=== PATIENT | female | born 1955 | race Caucasian/White ===

== ENCOUNTER 2016-11-18 14:45 | Inpatient (IN) | payer MEDICARE, OTHER ==
[2016-11-18 15:06] VITALS: BMI 42.9
[2016-11-18] MEDS ORDERED: IPRATROPIUM/ALBUTEROL SULFATE 3 ML AMPUL.NEB NEB PRN (16:09)
[2016-11-18] MEDS ORDERED: SALINE FLUSH 10 ML DISP.SYRIN IVF ONE ×3 (16:57→17:33)
[2016-11-18 17:06] LABS: BASOPHILS % 0.7 (0.0-1.5); EOSINOPHILS % 2.3 % (0.0-6.8); LYMPHOCYTES # 1.9 # k/uL (0.6-4.0); MEAN CORPUSCULAR HEMOGLOBIN 29.9 pg (28.0-34.0); MONOCYTES # 0.2 # k/uL (0.0-0.9)
[2016-11-18 17:23] LABS: eGFR (African) > 60; eGFR (Non-African) > 60
[2016-11-18] MEDS ORDERED: methylPREDNISolone SOD SUCC 125 MG/2 ML VIAL ONE ×2 (17:29→20:51)
[2016-11-18] MEDS ORDERED: POTASSIUM CHLORIDE 20 MEQ TABLET.ER ONE (17:30)
[2016-11-18] MEDS: methylPREDNISolone SOD SUCC 125 MG/2 ML VIAL IVP SCH ×2 (17:37→21:00)
[2016-11-18] MEDS: POTASSIUM CHLORIDE 20 MEQ TABLET.ER PO SCH (17:37)
--- NOTE | 2016-11-18 20:49 | Diagnostic Imaging Report ---
[facility] [address] [facility] [address] [address] Report Submission Date: Nov 18, 2016 6:59:11 PM CAB SUPERVISOR Patient Study Name: KAT THOMASON Date: Nov 18, 2016 6:44:44 PM CAB SUPERVISOR Modality Type: CR Gender: F Description: CHEST : 53 Institution: [facility] Physician: [facility] Pa and lateral chest Clinical history :short of breath Technique pa and lateral upright Findings: The lung cotto are clear. Lung cotto are hyperinflated. I see no hilar or mediastinal mass. There is no pleural effusion or lesion of the bony thorax. Impression: Hyperinflation with no acute infiltrate Electronically signed on Nov 18, 2016 6:59:11 PM CAB SUPERVISOR by: Shoaib PARK
--- NOTE | 2016-11-18 23:25 | History and Physical Report ---
History of Present Illnes - History of Present Illness Reason for Visit: Dyspnea History of Present Illness: This is a 61 year old female with COPD and asthma, who I saw in the clinic with respiratory distress and wheezing at the bedside. She has been ill now for the past week, but has gotten progressively worse. She had tried nebulizer therapy at home but was no improved and came to the office to be seen. She has had some diaphoresis, as well as generalized fatigue. - Past Medical History Cardiac: Other (Obesity) Pulmonary: Asthma, COPD Musculoskeletal: Osteoarthritis Endocrine: denies: Diabetes - Past Surgical History Past Surgical History: Appendectomy, Cholecystectomy, Hysterectomy, Tonsillectomy, Other (rotator cuff surgery) - Past Social History Smoke: Quit (3 years ago, approximately 40 pack year smoking history) Alcohol: None Drugs: None Lives: With Family ([place]) Domestic Violence: Negative - Health Maintenance Health Maintenance: Cholesterol Influenza Vaccine: Current for this Influenza Season Pneumonia Vaccine: Yes Resuscitation Status: Full Code Review of Systems - Review of Systems Constitutional: Fever, Chills Eyes: negative: pain ENT: negative: Ear Pain Respiratory: Cough, Shortness of Breath, SOB with Excertion Cardiovascular: negative: Chest Pain Gastrointestinal: negative: Nausea, Vomiting Genitourinary: negative: Dysuria, Frequency Musculoskeletal: negative: Neck Pain Skin: negative: Rash Neurological: Weakness. negative: Confusion - Medications/Allergies Allergies/Adverse Reactions: Allergies Allergy/AdvReac Type Severity Reaction Status Date / Time No Known Drug Allergies Allergy Verified 11/18/16 20:01 Current Inpatient Medications: Current Inpatient Medications Acetaminophen (Tylenol) 650 mg PO Q6H PRN PRN Reason: Fever >101 Albuterol/Ipratropium (Duoneb) 3 ml NEB Q4 PRN PRN Reason: Wheezing Furosemide (Lasix) 40 mg PO DAILY [facility] Methylprednisolone Sodium Succinate (Solu-Medrol) 125 mg IVP Q8 MARI Last Admin: 11/18/16 17:37 Dose: 125 mg Potassium Chloride (Klor-Con M20) 20 meq PO DAILY MARI Last Admin: 11/18/16 17:37 Dose: 20 meq Exam - Exam Vital Signs: Vital Signs (72 hours) 11/18/16 11/18/16 11/18/16 14:59 15:01 18:59 Temperature 97.2 F L 97.2 F L 96.9 F L Pulse Rate [ 72 72 65 Left] Respiratory 24 24 20 Rate Blood Pressure 141/77 141/77 100/71 [Left Arm] O2 Sat by Pulse 100 100 100 Oximetry 11/18/16 22:00 Temperature 98.1 F Pulse Rate [ 62 Left] Respiratory 20 Rate Blood Pressure 107/49 [Left Arm] O2 Sat by Pulse 96 Oximetry General: Alert, Oriented to Person, Oriented to Place, Oriented to Time, Cooperative, Moderate distress (respiratory), Obese HEENT: Atraumatic, PERRLA, EOMI Neck: No: Stridor Lungs: Wheezes, Rhonchi, Decreased Air Movement Cardiovascular: Regular rate Abdomen: Normal bowel sounds, Soft Male Genitourinary: No: Other Female Genitourinary: No: Other Integumentary: Normal, [place], Warm Extremities: No clubbing, No cyanosis Neurological: Normal speech Psych/Mental Status: Mental status NL, Mood NL, Intact Judgment - Laboratory Results Laboratory Results: Laboratory Results 11/18/16 11/18/16 16:45 16:45 WBC 5.30 RBC 4.32 Hgb 12.9 Hct 39.4 MCV 91.2 MCH 29.9 MCHC 32.8 RDW 12.7 Plt Count 198 Neut % (Auto) 55.9 Lymph % (Auto) 35.8 Terry % (Auto) 4.0 Eos % (Auto) 2.3 Baso % (Auto) 0.7 Neut # 3.0 Lymph # 1.9 Terry # 0.2 Eos # 0.1 Baso # 0.0 Reactive Lymphs % 1.3 Reactive Lymphs # 0.1 Sodium 139 Potassium 3.7 Chloride 107 Carbon Dioxide 28 BUN 10 Creatinine 0.6 Estimated Creat Clear 204 Est GFR ( Amer) > 60 Est GFR (Non-Af Amer) > 60 Glucose 112 H Calcium 9.5 Total Bilirubin 0.6 AST 28 ALT 24 Alkaline Phosphatase 96 Total Protein 7.0 Albumin 4.3 Assessment/Plan - Assessment/Plan (1) Asthma exacerbation Status: Acute Current Visit: Yes (2) Obesity (BMI 30-39.9) Status: Acute Current Visit: Yes VTE Assessment - RISK FACTOR SCORE VTE RISK FACTOR SCORES: AGE OVER 60 YEARS, ACUTE INFECTION OTHER THEN SEPSIS ( On lovenox/RODY hose)
[2016-11-19] MEDS ORDERED: ACETAMINOPHEN 325 MG TABLET ONE ×4 (00:30→22:06)
[2016-11-19] MEDS ORDERED: ENOXAPARIN SODIUM 30 MG/0.3 ML DISP.SYRIN SQ ONE ×2 (00:40→16:05)
[2016-11-19] MEDS: ACETAMINOPHEN 325 MG TABLET PO PRN ×3 (00:41→22:07)
[2016-11-19] MEDS: ENOXAPARIN SODIUM 30 MG/0.3 ML DISP.SYRIN SQ SCH ×2 (00:41→19:22)
[2016-11-19] MEDS ORDERED: POTASSIUM CHLORIDE 20 MEQ TABLET.ER ONE (04:26)
[2016-11-19] MEDS ORDERED: methylPREDNISolone SOD SUCC 125 MG/2 ML VIAL ONE ×3 (04:26→16:05)
[2016-11-19] MEDS ORDERED: FUROSEMIDE 40 MG TABLET PO ONE (04:26)
[2016-11-19] MEDS: methylPREDNISolone SOD SUCC 125 MG/2 ML VIAL IVP SCH ×3 (05:41→21:25)
[2016-11-19] MEDS: FUROSEMIDE 40 MG TABLET PO SCH (10:09)
[2016-11-19] MEDS: POTASSIUM CHLORIDE 20 MEQ TABLET.ER PO SCH (10:09)
[2016-11-19] MEDS ORDERED: SALINE FLUSH 10 ML DISP.SYRIN IVF ONE ×3 (13:07→16:05)
[2016-11-19] MEDS ORDERED: KETOROLAC TROMETHAMINE 30 MG/1ML VIAL IVP PRN (13:16)
--- NOTE | 2016-11-19 13:17 | Inpatient Progress Note ---
Subjective - Required Recertification Statement I anticipate X number of days because-include discharge plan: 1 - Review of Systems Events since last encounter: Oralia is still very wheezy and dyspneic. She remains afebrile and is currently on room air, however if she gets up and moves she begins to wheeze and become very short of breath. She is tolerating steroids and nebulizer treamtment well. General: Denies: Chills HEENT: Head Aches Pulmonary: Dyspnea, Cough Cardiovascular: Denies: Chest Pain Gastrointestinal: Denies: Nausea, Vomiting Genitourinary: Denies: Dysuria, Other Musculoskeletal: Denies: Neck Pain Neurological: Weakness Objective - Exam Vitals and I&O: Vital Signs Temp 98.0 F 11/19/16 05:55 Pulse 74 11/19/16 05:55 Resp 18 11/19/16 05:55 BP 105/45 11/19/16 05:55 Pulse Ox 92 11/19/16 05:55 Intake & Output 11/18/16 11/19/16 11/19/16 23:59 11:59 23:59 Weight 113.398 kg Other: Voiding Method Toilet # Voids 2 General: Alert, Oriented to Person, Oriented to Place, Morbidly Obese HEENT: Atraumatic, PERRLA, Nose Mucous membr. moist/[place] Neck: Supple, No JVD Lungs: Wheezes, Prolonged Expiration, Decreased Air Movement Cardiovascular: Regular rate Abdomen: Normal bowel sounds, Soft, No tenderness Extremities: No clubbing, No cyanosis Skin: Normal, [place] Neurological: Normal gait Psych/Mental Status: Mental status NL - Results Results: Laboratory Results WBC 5.30 K/ul (4.00-12.00) 11/18/16 16:45 RBC 4.32 M/ul (3.90-5.20) 11/18/16 16:45 Hgb 12.9 g/dL (12.0-16.0) 11/18/16 16:45 Hct 39.4 % (34.5-46.5) 11/18/16 16:45 MCV 91.2 fl (80.0-100.0) 11/18/16 16:45 MCH 29.9 pg (28.0-34.0) 11/18/16 16:45 MCHC 32.8 g/dL (30.0-36.0) 11/18/16 16:45 RDW 12.7 % (11.3-14.3) 11/18/16 16:45 Plt Count 198 K/mm3 (130-400) 11/18/16 16:45 Neut % (Auto) 55.9 % (39.0-79.0) 11/18/16 16:45 Lymph % (Auto) 35.8 % (16.0-50.0) 11/18/16 16:45 Benson % (Auto) 4.0 % (0.0-11.0) 11/18/16 16:45 Eos % (Auto) 2.3 % (0.0-6.8) 11/18/16 16:45 Baso % (Auto) 0.7 (0.0-1.5) 11/18/16 16:45 Neut # 3.0 # k/uL (1.4-7.7) 11/18/16 16:45 Lymph # 1.9 # k/uL (0.6-4.0) 11/18/16 16:45 Benson # 0.2 # k/uL (0.0-0.9) 11/18/16 16:45 Eos # 0.1 # k/uL (0.0-0.6) 11/18/16 16:45 Baso # 0.0 # k/uL (0.0-0.5) 11/18/16 16:45 Reactive Lymphs % 1.3 % (0.0-5.0) 11/18/16 16:45 Reactive Lymphs # 0.1 # k/uL (0.0-0.8) 11/18/16 16:45 Sodium 139 mmol/L (136-145) 11/18/16 16:45 Potassium 3.7 mmol/L (3.5-5.0) 11/18/16 16:45 Chloride 107 mmol/L (98-110) 11/18/16 16:45 Carbon Dioxide 28 mmol/L (20-32) 11/18/16 16:45 BUN 10 mg/dL (10-26) 11/18/16 16:45 Creatinine 0.6 mg/dL (0.4-1.5) 11/18/16 16:45 Estimated Creat Clear 204 11/18/16 16:45 Est GFR ( Amer) > 60 (60-) 11/18/16 16:45 Est GFR (Non-Af Amer) > 60 (60-) 11/18/16 16:45 Glucose 112 mg/dL (70-99) H 11/18/16 16:45 Calcium 9.5 mg/dL (8.5-10.5) 11/18/16 16:45 Total Bilirubin 0.6 mg/dL (0.2-1.2) 11/18/16 16:45 AST 28 U/L (0-41) 11/18/16 16:45 ALT 24 U/L (0-45) 11/18/16 16:45 Alkaline Phosphatase 96 U/L (46-116) 11/18/16 16:45 Total Protein 7.0 g/dL (6.0-8.5) 11/18/16 16:45 Albumin 4.3 g/dL (3.0-5.5) 11/18/16 16:45 Assessment/Plan - Assessment/Plan (1) Asthma exacerbation Status: Acute Current Visit: Yes Assessment: Continue nebulizer therapy and steroids Plan: Hope for discharge to home tomorrow (2) Obesity (BMI 30-39.9) Status: Acute Current Visit: Yes
[2016-11-19] MEDS ORDERED: KETOROLAC TROMETHAMINE 30 MG/1ML VIAL ONE ×2 (14:43→16:05)
[2016-11-20] MEDS ORDERED: POTASSIUM CHLORIDE 20 MEQ TABLET.ER ONE (04:37)
[2016-11-20] MEDS ORDERED: SALINE FLUSH 10 ML DISP.SYRIN IVF ONE (04:37)
[2016-11-20] MEDS ORDERED: methylPREDNISolone SOD SUCC 125 MG/2 ML VIAL ONE (04:37)
[2016-11-20] MEDS ORDERED: FUROSEMIDE 40 MG TABLET PO ONE (04:37)
[2016-11-20] MEDS: methylPREDNISolone SOD SUCC 125 MG/2 ML VIAL IVP SCH (06:20)
[2016-11-20 09:04] VITALS: BP 141/70
[2016-11-20] MEDS: FUROSEMIDE 40 MG TABLET PO SCH (09:16)
[2016-11-20] MEDS: POTASSIUM CHLORIDE 20 MEQ TABLET.ER PO SCH (09:16)
--- NOTE | 2016-11-21 13:05 | Discharge Summary ---
DATE OF ADMISSION: November 18, 2016 DATE OF DISCHARGE: November 20, 2016 DIAGNOSES ON THIS HOSPITALIZATION: Acute asthma exacerbation. SUMMARIZATION OF ADMISSION HISTORY AND PHYSICAL: This is a 61-year-old female well known to myself who presented to the clinic in acute respiratory distress with marked wheezing. Her chest x-ray was within normal limits and her labs were essentially within normal limits. HOSPITAL COURSE: She was admitted. She was started on IV steroids and aggressive nebulizer treatments and she improved markedly. She was discharged to home then with continuation of all of her home medications with the addition of a steroid taper of 20 mg 2 p.o. daily for 3 days, 1 for 3 days, and then one-half tablet for 5 days. That was sent out to the pharmacy for her. We will see her back next week for follow up. CONDITION ON DISCHARGE: Discharge is to home in improved condition. VIVIAN
== END 2016-11-20 13:00 | disposition home or self-care (01) | DRG 191 ==
LOC: SOUTH 14:45
PROVIDERS: ADMIT Family Medicine; ATTEND Family Medicine
DX: J44.1 Chronic obstructive pulmonary disease with (acute) exacerbation (principal); J45.901 Unspecified asthma with (acute) exacerbation
CPT/HCPCS: 36415; 71020; 80053; 85025; A9270; J1650; J1885; J2930; 99223; 99233; 99238; S1016

== ENCOUNTER 2016-11-29 12:53 | Outpatient (CLI) | payer MEDICARE, OTHER ==
[2016-11-29 14:06] LABS: ABG BASE EXCESS 4.9 (-2 - +2); ABG PH 7.46 (7.35-7.45)
--- NOTE | 2016-11-30 09:13 | CONSULTATION REPORT ---
PULMONARY CONSULTATION NOTE REFERRING PHYSICIAN: Calderon Brown MD CONSULTING PHYSICIAN: Mavis Durán MD REASON FOR CONSULT: 1. Recurrent shortness of breath. 2. Asthma. PROBLEM LIST: 1. Mild to moderate asthma with an exacerbation. 2. Remote history of tobacco abuse. 3. Morbid obesity with excessive daytime sleepiness and signs and symptoms suggestive of obstructive sleep apnea. HISTORY OF PRESENT ILLNESS: Oralia is a very pleasant 58-year-old patient with a past medical history significant for asthma with a recurrent admission. She was just admitted to the hospital recently for an asthma exacerbation where she had worsening shortness of breath and wheezing and had significant improvement with the use of a steroid. She does complain of shortness of breath on activity, episodes of wheezing, recurrent episode once a year. She has a history of known snoring and witnessed apnea by her boyfriend. She does have episodes of wheezing and shortness of breath but no significant cough. She denies any chest pain. No fever. No chills. No significant discharges. She does have postnasal drip but she denies any abdominal pain. No diarrhea. No constipation. She does have a remote history of tobacco abuse. She did quit 3 years ago and had more than a [id number] history of tobacco abuse. She has smoked since the age of 8. Currently, she is disabled. She lives at home with her boyfriend. She is . The patient is currently taking 20 mg of prednisone and feeling better but she continues to have excessive daytime fatigue and tiredness. PAST MEDICAL HISTORY: 1. Asthma as above with recurrent exacerbations. 2. Morbid obesity. HOME MEDICATIONS: 1. Albuterol HFA p.r.n. 2. Spiriva 1 cap inhaler once a day. 3. Advair 500 1 puff twice a day. 4. Oral prednisone p.r.n. for asthma exacerbation. 5. Zyrtec p.r.n. 6. Nebulizer with DuoNeb every 6 hours p.r.n. 7. Gabapentin 600 mg p.o. t.i.d. 8. Lasix 40 mg once a day. 9. Potassium supplement. SOCIAL HISTORY: The patient is and lives with her boyfriend. She is disabled. She has more than a [id number] history of tobacco abuse. No more smoking. FAMILY HISTORY: Father had coronary artery disease and stroke. Mother had asthma and hypertension. REVIEW OF SYSTEMS: A 12-point review of systems was done and positive only for that listed in the history of present illness. PHYSICAL EXAMINATION: Vital Signs: T: 97.0, R: 20, heart rate 69, oxygen saturation is 98% on room air, BP: 122/78. General: She is alert, awake, and oriented x3 in no acute distress. HEENT: PEERLA. No oral thrush. Neck: No lymphadenopathy. Lungs: Good entry bilaterally and prolonged expiratory phase but no use of accessary muscles. Heart: Regular rate and rhythm. No extra sounds. Abdomen: Soft and nontender. Neurologic Exam: Grossly intact. Skin: Skin is dry. WORKUP: Pulmonary function test from 2013 showed an FEV1 was 2.3 liters, which is 84% predicted with a significant response to a bronchodilator. ASSESSMENT: 1. Mild to moderate asthma with an exacerbation. 2. Remote history of tobacco abuse. 3. Morbid obesity with excessive daytime sleepiness and signs and symptoms suggestive of obstructive sleep apnea. PLAN: The patient would appear to have mild to moderate persistent asthma. I continue to recommend treatment with Advair and Spiriva but we can switch to Spiriva Respimat 2.5 mcg and Advair HFA 230 mcg, 2 puffs twice a day. I am going to provide the patient with a sample from my office and show her how to use the new inhalers. For her excessive daytime sleepiness and snoring and witnessed apnea, I recommend a sleep study which we can do as a home sleep test and she has a CPAP if needed as an auto CPAP. Also, I did obtain a blood gas today that showed mild hypoxia and mild hypercapnia but there is no need for oxygen at this point and there is no sign of significant CO2 retention. I am going to see the patient back in my clinic in 1 to 2 months after the portable sleep study and after changing her inhalers. cc: Dr. Calderon PARK
== END 2016-11-29 12:54 ==
LOC: PULMONARY 12:53
PROVIDERS: ATTEND Internal Medicine Critical Care Medicine
DX: J45.40 Moderate persistent asthma, uncomplicated (principal); Z87.891 Personal history of nicotine dependence; E66.01 Morbid (severe) obesity due to excess calories
CPT/HCPCS: 36600; 82803; 99214; G0463

== ENCOUNTER 2016-12-06 12:53 | Outpatient (CLI) | payer MEDICARE, OTHER ==
[2016-12-06] MEDS ORDERED: ALBUTEROL SULFATE 2.5 MG/3 ML AMPUL.NEB NEB ONE (13:09)
== END 2016-12-06 12:55 ==
LOC: RT 12:53
PROVIDERS: ATTEND Internal Medicine Critical Care Medicine
DX: J45.909 Unspecified asthma, uncomplicated (principal)
CPT/HCPCS: 94060

== ENCOUNTER 2016-12-23 08:46 | Outpatient (CLI) | payer MEDICARE, OTHER ==
--- NOTE | 2016-12-26 13:07 | OP Clinic Progress Note ---
REFERRING PHYSICIAN: Dr. Calderon Brown PROBLEM LIST: 1. Mild to moderate asthma, better control. 2. Remote history of tobacco abuse. 3. Morbid obesity with finding of mild apnea with apnea/hypopnea index of 4. Does not qualify for CPAP treatment. SUBJECTIVE: The patient was seen and examined today. She is feeling much better since her last clinic visit. She is using her Spiriva and Advair on a regular basis. She had no wheezing. No chest tightness. No abdominal pain. No chest pain. She denies any productive cough. Her past medical, family history, and medications were reviewed from my previous note and there were no significant changes. PHYSICAL EXAMINATION: Vital Signs: T: 97.0, R: 20, heart rate 66, oxygen saturation is 98%, BP: 134/ 91. General: Patient is alert, awake, and oriented x3 in no acute distress. Neck: Trachea is midline. Lungs: Clear to auscultation bilaterally. Heart: Regular rate and rhythm. Neurologic Exam: Grossly intact. Skin: Unremarkable. SLEEP STUDIES: I did review the finding of the sleep study with the patient. It is showing an apnea/hypopnea index of 4, but the RDI, which is the respiratory disturbance index, is 11. ASSESSMENT: 1. Mild to moderate asthma, better control. 2. Remote history of tobacco abuse. 3. Morbid obesity with finding of mild apnea with apnea/hypopnea index of 4. Does not qualify for CPAP treatment. PLAN: 1. At this point, patient had mild symptomatic obstructive sleep apnea but there is no need to do the CPAP. Patient said that she is interested in weight loss and I highly recommend a 25 to 35-pound weight loss. 2. At this point for her mild to moderate persistent asthma, I do recommend to continue Advair and the Spiriva. Her pulmonary function tests and spirometry on these inhalers are within normal limits. 3. I will follow up with the patient in 6 months in the Pulmonary Clinic. cc: Dr. Calderon PARK
== END 2016-12-23 08:47 ==
LOC: PULMONARY 08:46
PROVIDERS: ATTEND Internal Medicine Critical Care Medicine
DX: J45.909 Unspecified asthma, uncomplicated (principal); Z87.891 Personal history of nicotine dependence; E66.01 Morbid (severe) obesity due to excess calories
CPT/HCPCS: 99214; G0463

== ENCOUNTER 2017-04-12 11:44 | Outpatient (CLI) | payer MEDICARE, OTHER | END 2017-04-12 11:45 | LOC: LAB 11:44 | PROVIDERS: ATTEND Family Medicine | DX: R51 Headache (principal) | CPT/HCPCS: 36415; 85651 ==

== ENCOUNTER 2018-02-23 14:01 | Outpatient (CLI) | payer MEDICARE, OTHER ==
--- NOTE | 2018-02-23 17:54 | Diagnostic Imaging Report ---
ANNE-MARIE CABRAL [facility] [address] [facility] [address] [address] Report Submission Date: Feb 23, 2018 2:37:53 PM CDT Patient Study Name: KAT THOMASON Date: Feb 23, 2018 2:12:07 PM CDT Modality Type: DX Gender: F Description: LOWER EXTREMITY : 53 Institution: [facility] Physician: ANNE-MARIE CABRAL Examination: Plain film knees History: BILAT STANDING AP KNEES, RT MEDIAL KNEE PAIN X2 WEEKS, NO KNOWN INJURY (Hx) Findings: Single standing view of the knees demonstrates mild tibial spine spurring. Minimal medial joint space narrowing. No cortical abnormality. Impression: Mild degenerative disease. No acute appearing osseous abnormality Electronically signed on Feb 23, 2018 2:37:53 PM CDT by: Dylan PARK
--- NOTE | 2018-02-23 17:55 | Diagnostic Imaging Report ---
ANNE-MARIE CABRAL [facility] [address] [facility] [address] [address] Report Submission Date: Feb 23, 2018 2:36:34 PM CDT Patient Study Name: KAT THOMASON Date: Feb 23, 2018 2:16:05 PM CDT Modality Type: DX Gender: F Description: LOWER EXTREMITY : 53 Institution: [facility] Physician: ANNE-MARIE CABRAL Examination: Plain film right knee History: RT KNEE, PAIN IN MEDIAL RT KNEE X2 WEEKS, NO KNOWN INJURY (Hx) Findings: 3 views of the right knee demonstrates mild tibial spine and patellar spurring. No fracture. No dislocation. No joint effusion. No soft tissue irregularity. Impression: Mild degenerative changes. No acute osseous abnormality Electronically signed on Feb 23, 2018 2:36:34 PM CDT by: Dylan PARK
== END 2018-02-23 14:02 ==
LOC: RAD 14:01
PROVIDERS: ATTEND Family Medicine
DX: M25.561 Pain in right knee (principal)
CPT/HCPCS: 73562; 73565

== ENCOUNTER 2018-04-17 11:09 | Outpatient (CLI) | payer MEDICARE, OTHER ==
[2018-04-17 12:09] LABS: eGFR (African) > 60; eGFR (Non-African) > 60
== END 2018-04-17 11:11 ==
LOC: LAB 11:09
PROVIDERS: ATTEND Physician Assistant
DX: M62.838 Other muscle spasm (principal)
CPT/HCPCS: 36415; 80053

== ENCOUNTER 2018-09-26 11:11 | Outpatient (CLI) | payer MEDICARE, OTHER ==
[2018-09-26 11:32] LABS: BASOPHILS % 0.4 (0.0-1.5); MEAN CORPUSCULAR HEMOGLOBIN 30.1 pg (28.0-34.0); MONOCYTES % 6.7 % (0.0-11.0); NEUTROPHILS # 3.8 # k/uL (1.4-7.7)
[2018-09-26 17:21] LABS: T3-UPTAKE 32.7 % (25.4-41.2)
--- NOTE | 2018-09-27 04:54 | Diagnostic Imaging Report ---
LUCAS STONE [facility] [address] [facility] [address] Report Submission Date: Sep 26, 2018 4:25:09 PM TILE LAYER SUPERVISOR Patient Study Name: KAT THOMASON Date: Sep 26, 2018 11:36:35 AM TILE LAYER SUPERVISOR Modality Type: DX Gender: F Description: LOWER EXTREMITY : 53 Institution: [facility] Physician: LUCAS STONE Examination: Plain film left foot History: Lt foot patient has lt foot and heel pain no injury that she is aware of (Hx) Findings: 3 views of the left foot demonstrates osteopenia. Articular degenerative changes. No fracture or dislocation. Calcaneal spurs. No soft tissue swelling. No joint effusion. Impression: Osteopenia and degenerative changes. No acute cortical abnormality. Electronically signed on Sep 26, 2018 4:25:09 PM TILE LAYER SUPERVISOR by: Dylan PARK
== END 2018-09-26 11:13 ==
LOC: LAB 11:11
PROVIDERS: ATTEND Nurse Practitioner Family
DX: L65.9 Nonscarring hair loss, unspecified (principal); R53.83 Other fatigue; M85.872 Other specified disorders of bone density and structure, left ankle and foot; M79.672 Pain in left foot
CPT/HCPCS: 36415; 73630; 84436; 84479; 85025